=== PATIENT | male | born 1985 | race Caucasian/White ===

== ENCOUNTER → 2021-07-12 | Outpatient (CLI) | payer OTHER | LOC: KOH-I 10:30 | DX: J02.0 Streptococcal pharyngitis (principal) | CPT/HCPCS: 70551 ==

== ENCOUNTER → 2021-09-25 | Outpatient (CLI) | payer OTHER | LOC: EXRD 10:07 | DX: M25.511 Pain in right shoulder (principal); M25.512 Pain in left shoulder; M54.2 Cervicalgia | CPT/HCPCS: 72040; 73030 ==

== ENCOUNTER → 2021-10-25 | Outpatient (CLI) | payer OTHER | LOC: HEART 5 14:00 | DX: R55 Syncope and collapse (principal) ==

== ENCOUNTER → 2021-12-18 | Outpatient (CLI) | payer OTHER | LOC: HEART 5 11:00 | DX: R07.89 Other chest pain (principal); R55 Syncope and collapse | CPT/HCPCS: 93306 ==